=== PATIENT | female | born 1950 | race Caucasian/White ===

== ENCOUNTER → 2017-10-22 | Outpatient (CLI) | payer MEDICARE, MEDICAID ==
[~2017-10-22] MED LIST: AMLO5TAB88 PO; ASPI-1159 PO; BACITRACIN 50,000 UNITS/VIAL ONE; CEFAZOLIN SODIUM 1000MG/VIAL ONE; DEXAMETHASONE 4MG/ML 1ML VIAL ONE; ESCI10TA54 PO; ESOM40CA PO; FENTANYL CITRATE/PF 50MCG/ML 5ML VIAL ONE; GELATIN SPONGE,ABSORBABLE SZ 100 ONE; GLYCOPYRROLATE 0.2 MG/ML 2ML VIAL ONE; HYDROMORPHONE HCL/PF 2MG/ML (OR) ONE; IBUP-2029 PO; LIDOCAINE HCL/EPINEPHRINE 1%-EPI 1:100,000 30 ML VIAL INFIL ONE; MIDAZOLAM HCL 2 MG/2 ML VIAL ONE; NEOSTIGMINE METHYLSULFATE 1MG/ML 10 ML VIAL ONE; NORMAL SALINE 0.9% 10 ML SYR ONE; ONDANSETRON HCL 4MG/2ML INJ ONE; PHENYLEPHRINE HCL 10 MG/ML 1ML (IV VIAL) IV ONE; PROPOFOL 200MG/20ML VIAL IV ONE; ROCURONIUM BROMIDE 10MG/ML VIAL 5ML IV ONE; SODIUM CHLORIDE 0.9% 10ML VIAL ONE; SODIUM CHLORIDE 0.9% 2,000 ML ONE; SUCCINYLCHOLINE CHLORIDE 200MG/10ML IV ONE; THROMBIN (BOVINE) 5000 UNITS/VIAL TOP ONE
== END | disposition home or self-care (01) ==
LOC: CT 09:24
PROVIDERS: ATTEND Neurological Surgery
DX: K57.30 Diverticulosis of large intestine without perforation or abscess without bleeding (principal); M47.9 Spondylosis, unspecified; Z90.49 Acquired absence of other specified parts of digestive tract
CPT/HCPCS: 74176

== ENCOUNTER → 2018-02-02 | Outpatient (CLI) | payer MEDICARE, MEDICAID ==
[~2018-02-02] MED LIST changes: -BACITRACIN 50,000 UNITS/VIAL ONE; -CEFAZOLIN SODIUM 1000MG/VIAL ONE; -DEXAMETHASONE 4MG/ML 1ML VIAL ONE; -FENTANYL CITRATE/PF 50MCG/ML 5ML VIAL ONE; -GELATIN SPONGE,ABSORBABLE SZ 100 ONE; -GLYCOPYRROLATE 0.2 MG/ML 2ML VIAL ONE; -HYDROMORPHONE HCL/PF 2MG/ML (OR) ONE; -LIDOCAINE HCL/EPINEPHRINE 1%-EPI 1:100,000 30 ML VIAL INFIL ONE; -MIDAZOLAM HCL 2 MG/2 ML VIAL ONE; -NEOSTIGMINE METHYLSULFATE 1MG/ML 10 ML VIAL ONE; -NORMAL SALINE 0.9% 10 ML SYR ONE; -ONDANSETRON HCL 4MG/2ML INJ ONE; -PHENYLEPHRINE HCL 10 MG/ML 1ML (IV VIAL) IV ONE; -PROPOFOL 200MG/20ML VIAL IV ONE; -ROCURONIUM BROMIDE 10MG/ML VIAL 5ML IV ONE; -SODIUM CHLORIDE 0.9% 10ML VIAL ONE; -SODIUM CHLORIDE 0.9% 2,000 ML ONE; -SUCCINYLCHOLINE CHLORIDE 200MG/10ML IV ONE; -THROMBIN (BOVINE) 5000 UNITS/VIAL TOP ONE
== END | disposition home or self-care (01) ==
LOC: RAD 13:48
PROVIDERS: ATTEND Neurological Surgery
DX: M54.5 Low back pain (principal)
CPT/HCPCS: 72114

== ENCOUNTER → 2018-05-06 | Outpatient (CLI) | payer MEDICARE, MEDICAID | END | disposition home or self-care (01) | LOC: RAD 11:40 | PROVIDERS: ATTEND Neurological Surgery | DX: M54.9 Dorsalgia, unspecified (principal); I10 Essential (primary) hypertension; Z79.899 Other long term (current) drug therapy | CPT/HCPCS: 72114 ==

== ENCOUNTER → 2018-06-17 | Outpatient (CLI) | payer MEDICARE, MEDICAID | END | disposition home or self-care (01) | LOC: MRI 08:07 | PROVIDERS: ATTEND Neurological Surgery | DX: G31.89 Other specified degenerative diseases of nervous system (principal); R51 Headache; R42 Dizziness and giddiness | CPT/HCPCS: 70551 ==

== ENCOUNTER → 2019-03-07 | Outpatient (CLI) | payer MEDICARE, MEDICAID ==
[~2019-03-07] MED LIST changes: -ASPI-1159 PO; +ASPI-1393 PO
== END | disposition home or self-care (01) ==
LOC: RAD 09:35
PROVIDERS: ATTEND Neurological Surgery
DX: M48.061 Spinal stenosis, lumbar region without neurogenic claudication (principal)
CPT/HCPCS: 72114

== ENCOUNTER → 2019-04-06 | Outpatient (CLI) | payer MEDICARE, MEDICAID | END | disposition home or self-care (01) | LOC: CT 08:44 | PROVIDERS: ATTEND Neurological Surgery | DX: M48.02 Spinal stenosis, cervical region (principal); I67.82 Cerebral ischemia; R90.82 White matter disease, unspecified; M50.221 Other cervical disc displacement at C4-C5 level | CPT/HCPCS: 72141 ==

== ENCOUNTER → 2020-07-31 | Outpatient (CLI) | payer MEDICARE, MEDICAID ==
[~2020-07-31] MED LIST changes: -ASPI-1393 PO; +ASPI-1497 PO; -ESCI10TA54 PO; +ESCI10TA61 PO
== END | disposition home or self-care (01) ==
LOC: CT 10:38
PROVIDERS: ATTEND Neurological Surgery
DX: M48.061 Spinal stenosis, lumbar region without neurogenic claudication (principal); M41.84 Other forms of scoliosis, thoracic region; Z98.890 Other specified postprocedural states
CPT/HCPCS: 72131

== ENCOUNTER 2023-01-13 05:05 | Inpatient (IN) | payer MEDICARE, MEDICAID ==
[~2023-01-13] VITALS: Ht 165.1 cm; Wt 72.6 kg
[~2023-01-13 05:05] MED LIST changes: +ESCI-7 PO; -ESCI10TA61 PO; +LIDO1ADH5 TP; +TOPUD MT; +TRAM50TA3 MT
[2023-01-13] MEDS ORDERED: GENTAMICIN SULF 40MG/ML 2ML VIAL ONE (05:50)
[2023-01-13] MEDS ORDERED: SKIN ADHESIVE 0.7 GM EA TOP ONE (05:50)
[2023-01-13] MEDS ORDERED: LIDOCAINE HCL/EPINEPHRINE 1%-EPI 1:100,000 30 ML VIAL INFIL ONE (05:50)
[2023-01-13] MEDS ORDERED: BACITRACIN 15GM TUBE TOP ONE (05:50)
[2023-01-13] MEDS ORDERED: THROMBIN (BOVINE) 5000 UNITS/VIAL TOP ONE (05:52)
[2023-01-13] MEDS ORDERED: LACTATED RINGERS 1,000 ML IV SCH (06:00)
[2023-01-13 06:04] LABS: CHLORIDE 105 mEq/L (98-107)
[2023-01-13 06:26] LABS: EOSINOPHILS % 4.4 % (0.0-5.0); HEMATOCRIT. 40.9 % (36.0-48.0); HEMOGLOBIN. 14.1 g/dL (12.0-16.0); LYMPHOCYTES % 38.7 % (20.0-50.0); MEAN CORPUSCULAR HEMOGLOBIN 30.4 pg (28.0-32.0); MEAN CORPUSCULAR VOLUME 88.4 fL (81.0-99.0); MEAN PLATELET VOLUME 7.9 fl (7.4-10.4); MONOCYTES % 7.7 % (2.0-8.0); NEUTROPHILS % 48.2 % (40.0-76.0); PLATELET 239 x1000/uL (130-400); RED BLOOD CELL COUNT 4.63 mill/uL (4.2-5.4); RED CELL DISTRIBUTION WIDTH 12.7 % (11.6-14.6)
[2023-01-13 06:39] LABS: PARTIAL THROMBOPLASTIN TIME 27.5 sec (23.4-31.0); PROTHROMBIN TIME 10.6 sec (9.6-11.0)
[2023-01-13] MEDS ORDERED: ACETAMINOPHEN 500MG TABLET ONE (06:44)
[2023-01-13] MEDS ORDERED: PROPOFOL 200MG/20ML VIAL IV ONE (07:14)
[2023-01-13] MEDS ORDERED: CEFAZOLIN SODIUM 1000MG/VIAL ONE (07:16)
[2023-01-13] MEDS ORDERED: SUCCINYLCHOLINE CHLORIDE 200MG/10ML IV ONE (07:16)
[2023-01-13] MEDS ORDERED: PHENYLEPHRINE HCL 10 MG/ML 1ML (IV VIAL) IV ONE (07:17)
[2023-01-13] MEDS ORDERED: ROCURONIUM BROMIDE 10MG/ML VIAL 5ML IV ONE (07:19)
[2023-01-13] MEDS ORDERED: ONDANSETRON HCL 4MG/2ML INJ ONE (07:21)
[2023-01-13] MEDS ORDERED: LIDOCAINE HCL 1% 10 MG/ML 10ML VIAL ONE (07:26)
[2023-01-13] MEDS ORDERED: FENTANYL CITRATE/PF 50MCG/ML 2ML VIAL ONE (07:35)
[2023-01-13 07:36] LABS: CLARITY URINE CLEAR (CLEAR); COLOR URINE YELLOW (YELLOW); KETONES URINE NEGATIVE (NEGATIVE); LEUKOCYTE ESTERASE URINE 1+ (NEGATIVE); NITRITE URINE NEGATIVE (NEGATIVE); OCCULT BLOOD URINE TRACE (NEGATIVE); PROTEIN URINE NEGATIVE (NEGATIVE); SPECIFIC GRAVITY URINE 1.018 (1.005-1.030); UROBILINOGEN URINE 0.2 E.U./dL (0.2-1.0)
[2023-01-13] MEDS ORDERED: ONDANSETRON HCL 4MG/2ML INJ IV PRN (08:15)
[2023-01-13] MEDS ORDERED: HYDROMORPHONE HCL/PF 2MG/ML CPJ IV PRN (08:15)
[2023-01-13] MEDS ORDERED: FENTANYL CITRATE/PF 50MCG/ML 2ML VIAL IV PRN (08:15)
[2023-01-13] MEDS ORDERED: NEOSTIGMINE METHYLSULFATE 1MG/ML 10 ML VIAL ONE (08:25)
[2023-01-13] MEDS ORDERED: GLYCOPYRROLATE 0.2 MG/ML 2ML VIAL ONE (08:25)
[2023-01-13] MEDS ORDERED: HYDRALAZINE 20MG/ML VIAL IV PRN (09:15)
[2023-01-13] MEDS ORDERED: NALOXONE HCL 0.4MG/ML VIAL IV PRN (09:30)
[2023-01-13] MEDS ORDERED: OMEP40CA20 PO (11:07)
[2023-01-13] MEDS ORDERED: AMLO10TA80 PO (11:07)
[2023-01-13] MEDS ORDERED: MELO-106 PO (11:09)
[2023-01-13] MEDS ORDERED: BACL20TA PO (11:12)
[2023-01-13 12:30] VITALS: BP 106/74
[2023-01-13] MEDS: MORPHINE SULFATE 4 MG/ML CPJ (NOT FOR IM USE) IV PRN ×3 (12:41→23:50)
[2023-01-13] MEDS: CEFAZOLIN 1000MG PREMIX 50 ML IV SCH ×2 (14:00→21:25)
[2023-01-13] MEDS ORDERED: CEFAZOLIN SODIUM 1000MG/VIAL IV SCH (14:00)
[2023-01-13] MEDS: DEXT 5%/LACTATED RINGERS 1,000 ML IV SCH ×2 (15:00→21:00)
[2023-01-13 16:00] VITALS: BP 104/57
[2023-01-13] MEDS ORDERED: HYDRALAZINE 5 MG in SODIUM CHLORIDE 0.9% 49.5 ML IV PRN (18:30)
[2023-01-13 20:00] VITALS: BP 111/57
[2023-01-14] VITALS: BP 125/61
[2023-01-14 04:00] VITALS: BP 107/50
[2023-01-14] MEDS: CEFAZOLIN 1000MG PREMIX 50 ML IV SCH ×3 (05:44→21:16)
[2023-01-14] MEDS: DEXT 5%/LACTATED RINGERS 1,000 ML IV SCH ×2 (05:45→17:13)
[2023-01-14] MEDS: HYDROCODONE/ACETAMINOPHEN 5/325MG TABLET PO PRN ×4 (05:49→17:40)
[2023-01-14] MEDS: MORPHINE SULFATE 4 MG/ML CPJ (NOT FOR IM USE) IV PRN (06:07)
[2023-01-14 12:00] VITALS: BP 120/52
[2023-01-14 16:00] VITALS: BP 122/58
[2023-01-14 20:00] VITALS: BP 119/50
[2023-01-15] VITALS: BP 130/55
[2023-01-15] MEDS: HYDROCODONE/ACETAMINOPHEN 5/325MG TABLET PO PRN ×4 (00:29→17:11)
[2023-01-15] MEDS: DEXT 5%/LACTATED RINGERS 1,000 ML IV SCH ×3 (01:15→21:15)
[2023-01-15 04:00] VITALS: BP 117/57
[2023-01-15] MEDS: CEFAZOLIN 1000MG PREMIX 50 ML IV SCH ×2 (05:19→13:41)
[2023-01-15 07:53] VITALS: BP 116/56
[2023-01-15 12:00] VITALS: BP 128/61
[2023-01-15 16:00] VITALS: BP 107/68
[2023-01-15] MEDS: MORPHINE SULFATE 4 MG/ML CPJ (NOT FOR IM USE) IV PRN (18:48)
[2023-01-15 20:00] VITALS: BP 128/56
[2023-01-16] VITALS: BP 123/72
[2023-01-16 04:00] VITALS: BP 134/62
[2023-01-16 07:04] LABS: BASOPHILS % 0.8 % (0.0-2.0); EOSINOPHILS % 4.3 % (0.0-5.0); HEMOGLOBIN. 12.1 g/dL (12.0-16.0); MEAN CORPUSCULAR HEMOGLOBIN 30.5 pg (28.0-32.0); MEAN CORPUSCULAR VOLUME 88.3 fL (81.0-99.0); MEAN PLATELET VOLUME 8.1 fl (7.4-10.4); MONOCYTES % 8.1 % (2.0-8.0); NEUTROPHILS % 64.8 % (40.0-76.0); PLATELET 202 x1000/uL (130-400); RED BLOOD CELL COUNT 3.97 mill/uL (4.2-5.4); RED CELL DISTRIBUTION WIDTH 12.6 % (11.6-14.6)
[2023-01-16 08:00] VITALS: BP 123/66
[2023-01-16 12:00] VITALS: BP 139/71
[2023-01-16 14:06] LABS: CHLORIDE 100 mEq/L (98-107)
[2023-01-16] MEDS: HYDROCODONE/ACETAMINOPHEN 5/325MG TABLET PO PRN (15:06)
[2023-01-16 15:58] VITALS: BP 123/59
[2023-01-16] MEDS ORDERED: HYDRALAZINE 5 MG in SODIUM CHLORIDE 0.9% 49.75 ML IV PRN (16:11)
[2023-01-16 16:15] VITALS: BP 123/59
== END 2023-01-16 16:15 | disposition home health service (06) | DRG 497 ==
LOC: OR 05:05 → 6EST 12:22
PROVIDERS: ADMIT Internal Medicine; ATTEND Internal Medicine
PROC: 0QB00ZZ Excision of Lumbar Vertebra, Open Approach (ICD-10-PCS; principal; 2023-01-13)
PROC: 0QP004Z Removal of Internal Fixation Device from Lumbar Vertebra, Open Approach (ICD-10-PCS; 2023-01-13)
DX: T84.84XA Pain due to internal orthopedic prosthetic devices, implants and grafts, initial encounter (principal); M48.061 Spinal stenosis, lumbar region without neurogenic claudication; M54.16 Radiculopathy, lumbar region; I10 Essential (primary) hypertension; Z98.1 Arthrodesis status; Y84.8 Other medical procedures as the cause of abnormal reaction of the patient, or of later complication, without mention of misadventure at the time of the procedure; Y92.89 Other specified places as the place of occurrence of the external cause; Z79.82 Long term (current) use of aspirin; Z20.822 Contact with and (suspected) exposure to COVID-19
CPT/HCPCS: 36415; 71045; 72100; 76000; 80048; 81003; 85025; 86850; 86900; 87070; 87075; 87426; 88300; 93005; 95925; 95926; 95928; 95929; 97116; 97162; C9803; J0330; J0690; J1580; J2270; J2370; J2405; J2704; J2710; J3010; J3490; J7121

== ENCOUNTER → 2025-06-14 | Outpatient (CLI) | payer MEDICARE, MEDICAID ==
[~2025-06-14] MED LIST changes: +AMLO10TA80 PO; -AMLO5TAB88 PO; +BACL20TA PO; -ESCI-7 PO; -ESOM40CA PO; +IBUP-1455 PO; -IBUP-2029 PO; -LIDO1ADH5 TP; +MELO-106 PO; +OMEP40CA20 PO; -TRAM50TA3 MT
== END | disposition home or self-care (01) ==
LOC: MRI 09:05
PROVIDERS: ATTEND Neurological Surgery
DX: M51.360 Other intervertebral disc degeneration, lumbar region with discogenic back pain only (principal); M48.062 Spinal stenosis, lumbar region with neurogenic claudication; M53.85 Other specified dorsopathies, thoracolumbar region; M54.9 Dorsalgia, unspecified
CPT/HCPCS: 72146; 72148